=== PATIENT | male | born 1990 | race Caucasian/White ===

== ENCOUNTER 2016-09-12 12:08 | Emergency (ER) | payer OTHER | END 2016-09-12 14:56 | disposition left against medical advice (07) | LOC: UCCORT 12:08 | DX: M54.9 Dorsalgia, unspecified (principal); Z53.21 Procedure and treatment not carried out due to patient leaving prior to being seen by health care provider ==

== ENCOUNTER 2016-09-20 10:34 | Emergency (ER) | payer OTHER ==
[2016-09-20 11:45] VITALS: BP 150/76
--- NOTE | 2016-09-20 12:05 | UC ---
Back Pain HPI - HPI Summary HPI Summary: lower back pain x 2 weeks s/p fall 2 weeks ago , injury to his lower back increase pain with walking, - History of Current Complaint Chief Complaint: UCBackPain Stated Complaint: BACK PAIN,SORE THROAT Time Seen by Provider: 09/20/16 11:46 Hx Obtained From: Patient Onset/Duration: Sudden Onset, Lasting Weeks - 2, Still Present Timing: Constant Severity Initially: Severe Severity Currently: Severe Back Pain: Is Discrete @ - right lower back Character: Aching, Throbbing, Spasmodic Aggravating: Movement, Lifting, Bending, Walking, Cough Alleviating: Rest Associated Signs And Symptoms: Positive: Numbness - right leg. Negative: Swelling, Redness, Bruising, Fever, Weakness, Abdominal Pain, Flank Pain, Weight Loss - Allergies/Home Medications Allergies/Adverse Reactions: Allergies Allergy/AdvReac Type Severity Reaction Status Date / Time seasonal Allergy Eyes Uncoded 09/20/16 11:45 Itchy/Swollen/Red/Watery Home Medications: Home Medications Amphetamine-Dextroamphetamine [Adderall 15 mg] 1 tab PO TID 09/20/16 [History Confirmed 09/20/16] Fluoxetine HCl [Prozac] 20 mg PO DAILY 09/20/16 [History Confirmed 09/20/16] Mirtazapine TAB* [Remeron TAB*] 7.5 mg PO BEDTIME 09/20/16 [History Confirmed ] Nightmare Med 1 tab PO BEDTIME 09/20/16 [History Confirmed 09/20/16] PMH/Surg Hx/FS Hx/Imm Hx Endocrine History Of: Denies: Diabetes Cardiovascular History Of: Denies: Cardiac Disorders Respiratory History Of: Reports: Asthma - Surgical History Surgical History: None - Family History Known Family History: Positive: Hypertension, Respiratory Disease - Social History Alcohol Use: Occasionally Substance Use Type: None Smoking Status (MU): Light Every Day Tobacco Smoker Type: eCigarettes Amount Used/How Often: 1/2 PPD Length of Time of Smoking/Using Tobacco: On and Off for 10 Years Have You Smoked in the Last Year: Yes - Immunization History Most Recent Influenza Vaccination: Not the 2013/2014 season Most Recent Tetanus Shot: 07/22/14 Review of Systems Constitutional: Negative Skin: Negative Eyes: Negative ENT: Sore Throat Respiratory: Cough Musculoskeletal: Other: - lower back pain All Other Systems Reviewed And Are Negative: Yes Physical Exam Triage Information Reviewed: Yes Appearance: Well-Appearing, No Pain Distress, Well-Nourished Vital Signs: Initial Vital Signs Temp 99 F 09/20/16 11:38 Pulse 79 09/20/16 11:38 Resp 16 09/20/16 11:38 BP 150/76 09/20/16 11:38 Pulse Ox 100 09/20/16 11:38 Vital Signs Reviewed: Yes Eyes: Positive: Conjunctiva Clear ENT: Positive: Normal ENT inspection, Hearing grossly normal, Pharynx normal. Negative: Pharyngeal erythema, Nasal congestion, Nasal drainage Neck: Positive: Supple, Nontender, No Lymphadenopathy Respiratory: Positive: Chest non-tender, Lungs clear, Normal breath sounds Cardiovascular: Positive: RRR, No Murmur, Pulses Normal Musculoskeletal: Positive: Other: - lower back : + no swelling, no erythema, + tenderness right lower back good ROM on flexion and extension, DTR : + 2 b/l lower ext. Back Pain Course/Dx - Differential Dx/Diagnosis Provider Diagnoses: lower back pain Discharge - Discharge Plan Condition: Stable Disposition: HOME Prescriptions: Cyclobenzaprine TAB* [Flexeril TAB*] 10 mg PO BID #20 tab Naproxen [Naproxen 500 MG TABS] 500 mg PO BID #20 tab Patient Education Materials: Back Pain (ED) Referrals: STORM Daugherty [Primary Care Provider] - 2 Weeks
== END 2016-09-20 12:16 | disposition home or self-care (01) ==
LOC: UCCORT 10:34
DX: M54.5 Low back pain (principal); F17.210 Nicotine dependence, cigarettes, uncomplicated
CPT/HCPCS: 99212; G0463

== ENCOUNTER 2016-12-05 19:42 | Emergency (ER) | payer OTHER | END 2016-12-05 21:30 | disposition left against medical advice (07) | LOC: UCCORT 19:42 | DX: M54.9 Dorsalgia, unspecified (principal); J02.9 Acute pharyngitis, unspecified; Z53.21 Procedure and treatment not carried out due to patient leaving prior to being seen by health care provider ==

== ENCOUNTER 2016-12-19 16:01 | Emergency (ER) | payer OTHER ==
[2016-12-19 17:01] VITALS: BP 121/88
--- NOTE | 2016-12-19 17:12 | UC ---
Back Pain HPI - HPI Summary HPI Summary: 26 yo male presents here with numerous problems/requests 1. yesterday had n/v x 3 and diarrhea x 10. Better today but requests work note for yesterday 2. cold sore x 1 week 3. requests refill of asthma meds 4. requests med for chronic back pain...flexeril makes him drowsy - History of Current Complaint Chief Complaint: UCGeneralIllness Stated Complaint: SORE THROAT/CONGESTION Time Seen by Provider: 12/19/16 16:32 Hx Obtained From: Patient Onset/Duration: Still Present Timing: Constant Severity Initially: Mild Severity Currently: Mild Pain Intensity: 4 Pain Scale Used: 0-10 Numeric Back Pain: Is Diffuse Character: Aching, Spasmodic Aggravating: Movement, Lifting, Bending Alleviating: Nothing Associated Signs And Symptoms: Positive: Negative - Allergies/Home Medications Allergies/Adverse Reactions: Allergies Allergy/AdvReac Type Severity Reaction Status Date / Time seasonal Allergy Eyes Uncoded 12/19/16 16:37 Itchy/Swollen/Red/Watery PMH/Surg Hx/FS Hx/Imm Hx Endocrine History Of: Denies: Diabetes Cardiovascular History Of: Denies: Cardiac Disorders Respiratory History Of: Reports: Asthma - Surgical History Surgical History: None - Family History Known Family History: Positive: Hypertension, Respiratory Disease - Social History Alcohol Use: Occasionally Alcohol Amount: no longer drinking x 3 months. Substance Use Type: None Smoking Status (MU): Heavy Every Day Tobacco Smoker Type: eCigarettes Amount Used/How Often: 1/2 PPD Length of Time of Smoking/Using Tobacco: On and Off for 10 Years Have You Smoked in the Last Year: Yes - Immunization History Most Recent Influenza Vaccination: Not the season Most Recent Tetanus Shot: 07/22/14 Review of Systems Constitutional: Negative Skin: Negative Eyes: Negative ENT: Negative Respiratory: Negative Cardiovascular: Negative Gastrointestinal: Negative Genitourinary: Negative Motor: Negative Neurovascular: Negative Musculoskeletal: Arthralgia, Myalgia Neurological: Negative Psychological: Negative All Other Systems Reviewed And Are Negative: Yes Physical Exam Triage Information Reviewed: Yes Appearance: Well-Appearing, No Pain Distress, Well-Nourished Vital Signs: Initial Vital Signs Temp 99.6 F 12/19/16 16:40 Pulse 78 12/19/16 16:40 Resp 18 12/19/16 16:40 BP 121/88 12/19/16 16:40 Pulse Ox 99 12/19/16 16:40 Vital Signs Reviewed: Yes Eyes: Positive: Conjunctiva Clear ENT: Positive: Hearing grossly normal, TMs normal. Negative: Nasal congestion, Nasal drainage, Tonsillar swelling, Tonsillar exudate, Trismus, Muffled/hoarse voice Neck exam: Normal Neck: Positive: Nontender, No Lymphadenopathy Respiratory: Positive: Lungs clear, Normal breath sounds, No respiratory distress, No accessory muscle use Cardiovascular: Positive: RRR, No Murmur Musculoskeletal: Positive: ROM Intact, No Edema Neurological: Positive: Alert Psychological Exam: Normal Skin Exam: Normal Back Pain Course/Dx - Differential Dx/Diagnosis Provider Diagnoses: 1. chronic back pain. 2. asthma by history-med refill. 3. herpes labialis. 4. resolved gastroenteritis Discharge - Discharge Plan Condition: Stable Disposition: HOME Prescriptions: Albuterol HFA INHALER* [Ventolin HFA Inhaler*] 2 puff INH QID PRN #1 mdi PRN Reason: Wheezing Fluticasone-Salmeterol 250-50* [Advair Diskus 250-50*] 1 puff INH BID #1 diskus Tizanidine HCl [Zanaflex] 4 mg PO QID PRN #30 tab PRN Reason: Spasms - Back Patient Education Materials: Back Pain (ED) Forms: *Work Release Referrals: Mathew Blunt MD [Emergency Provider] - If Needed Additional Instructions: see back specialist as planned return or see your MD for new or worsening symptoms Images Head: 1 - herpes labialis Front/Back of Body, Lg (Cache): 1 - kypho scoliosis
== END 2016-12-19 17:11 | disposition home or self-care (01) ==
LOC: UCCORT 16:01
DX: M54.9 Dorsalgia, unspecified (principal); G89.29 Other chronic pain; J45.909 Unspecified asthma, uncomplicated; B00.1 Herpesviral vesicular dermatitis; Z76.0 Encounter for issue of repeat prescription; F17.210 Nicotine dependence, cigarettes, uncomplicated
CPT/HCPCS: 99212; G0463

== ENCOUNTER 2017-05-23 09:39 | Emergency (ER) | payer MEDICAID, OTHER ==
[2017-05-23 10:54] VITALS: BP 134/77
--- NOTE | 2017-05-23 11:56 | RAD ---
HISTORY: Back pain, scoliosis COMPARISONS: None relevant VIEWS: Frontal views of the thoracolumbar spine FINDINGS: There is a trace scoliotic curvature of the thoracolumbar spine There are 13 rib bearing vertebral bodies, with accessory ribs at L1. There is partial preservation of the S1 vertebral body. The major curve is convex to the left, with apex at T8. The Krause angle is 6 degrees, measured from T6-T12. The minor curve is convex to the right with apex at T5. The Krause angle is 2 degrees, measured from T4-T6. There are smaller compensatory curves to the left centered at T3, and to the right at L3 There are no fusion or segmentation anomalies. The iliac crests are level. IMPRESSION: THORACOLUMBAR SCOLIOSIS, DESCRIBED ABOVE
--- NOTE | 2017-05-23 11:58 | RAD ---
HISTORY: Back pain COMPARISONS: Scoliosis series dated May 23, 2017, L spine dated April 25, 2016 VIEWS: 3, Frontal and lateral views of the thoracolumbar spine. FINDINGS: ALIGNMENT: There is a minimal scoliotic curvature of the spine. VERTEBRAL BODIES: The vertebral body heights are normal. The interpedicular distances are normal. Incidentally noted accessory ribs at L1. JOINTS: Unremarkable. INTERVERTEBRAL DISCS: The intervertebral disc heights are normal. SOFT TISSUE: Unremarkable OTHER: The visualized lungs are clear. IMPRESSION: UNREMARKABLE RADIOGRAPH OF THE THORACOLUMBAR SPINE
--- NOTE | 2017-05-23 12:23 | UC ---
Back Pain HPI - HPI Summary HPI Summary: back pain x 2 months getting worse over the past month hx of scoliosis , feels the scoliosis is getting worse - History of Current Complaint Chief Complaint: UCBackPain Stated Complaint: BACK PAIN Time Seen by Provider: 05/23/17 10:51 Hx Obtained From: Patient Onset/Duration: Gradual Onset, Lasting Weeks - 8, Still Present Timing: Constant Severity Initially: Moderate Severity Currently: Moderate Back Pain: Is Diffuse Character: Aching, Spasmodic Aggravating Factor(s): Movement, Bending, Walking, Cough Alleviating Factor(s): Nothing Associated Signs And Symptoms: Negative: Swelling, Redness, Bruising, Fever, Weakness, Numbness, Tingling, Abdominal Pain, Flank Pain, Bladder Incontinence, Bowel Incontinence, Weight Loss, Pain with Weight Bearing - Allergies/Home Medications Allergies/Adverse Reactions: Allergies Allergy/AdvReac Type Severity Reaction Status Date / Time seasonal Allergy Eyes Uncoded 05/23/17 10:54 Itchy/Swollen/Red/Watery PMH/Surg Hx/FS Hx/Imm Hx - Additional Past Medical History Additional PMH: hx of scoliosis - Surgical History Surgical History: None - Family History Known Family History: Positive: Hypertension, Respiratory Disease - Social History Alcohol Use: None Alcohol Amount: no longer drinking x 3 months. Substance Use Type: None Smoking Status (MU): Light Every Day Tobacco Smoker Type: Smokeless Tobacco Amount Used/How Often: 1/2 PPD Length of Time of Smoking/Using Tobacco: On and Off for 10 Years Have You Smoked in the Last Year: Yes - Immunization History Most Recent Influenza Vaccination: no 2016 Most Recent Tetanus Shot: 07/22/14 Review of Systems Constitutional: Negative Skin: Negative Eyes: Negative ENT: Negative Respiratory: Negative Is Patient Immunocompromised?: No All Other Systems Reviewed And Are Negative: Yes Physical Exam Triage Information Reviewed: Yes Appearance: Well-Appearing, No Pain Distress, Well-Nourished Vital Signs: Initial Vital Signs Temp 98 F 05/23/17 10:49 Pulse 88 05/23/17 10:49 Resp 15 05/23/17 10:49 BP 134/77 05/23/17 10:49 Pulse Ox 100 05/23/17 10:49 Vital Signs Reviewed: Yes Eyes: Positive: Conjunctiva Clear ENT: Positive: Normal ENT inspection, Hearing grossly normal, Pharynx normal Neck: Positive: Supple, Nontender, No Lymphadenopathy Respiratory: Positive: Chest non-tender, Lungs clear, Normal breath sounds Cardiovascular: Positive: RRR, No Murmur, Pulses Normal Abdominal Exam: Normal Abdomen Description: Positive: Soft Bowel Sounds: Positive: Present UC Physical Exam Vital Signs On Initial Exam: Initial Vitals Temp Pulse Resp BP Pulse Ox 98 F 88 15 134/77 100 05/23/17 10:49 05/23/17 10:49 05/23/17 10:49 05/23/17 10:49 05/23/17 10:49 - Back Exam Back Exam: decreased range of motion, Scoliosis, Kyphosis Back Pain Course/Dx - Differential Dx/Diagnosis Provider Diagnoses: scoliosis. back pain Discharge - Discharge Plan Condition: Stable Disposition: HOME Prescriptions: Cyclobenzaprine TAB* [Flexeril 10 MG TAB*] 10 mg PO BID #20 tab Naproxen [Naproxen 500 mg] 500 mg PO BID #20 tab Patient Education Materials: Back Pain (ED) Referrals: [facility] [Primary Care Provider] - 7 Days Additional Instructions: FINDINGS: There is a trace scoliotic curvature of the thoracolumbar spine There are 13 rib bearing vertebral bodies, with accessory ribs at L1. There is partial preservation of the S1 vertebral body. The major curve is convex to the left, with apex at T8. The Krause angle is 6 degrees, measured from T6-T12. The minor curve is convex to the right with apex at T5. The Krause angle is 2 degrees, measured from T4-T6. There are smaller compensatory curves to the left centered at T3, and to the right at L3 There are no fusion or segmentation anomalies. The iliac crests are level. IMPRESSION: THORACOLUMBAR SCOLIOSIS, DESCRIBED ABOVE
== END 2017-05-23 12:21 | disposition home or self-care (01) ==
LOC: UCCORT 09:39
DX: M54.9 Dorsalgia, unspecified (principal); M41.9 Scoliosis, unspecified; J30.2 Other seasonal allergic rhinitis; F17.210 Nicotine dependence, cigarettes, uncomplicated
CPT/HCPCS: 72080; 72081; 99212; G0463